=== PATIENT | female | born 1960 | race Caucasian/White ===

== ENCOUNTER 2023-03-29 16:06 | Inpatient (IN) | payer MEDICARE, OTHER, SELFPAY ==
[~2023-03-29 16:06] MED LIST: Iopamidol-370 76% 500 ML MDV (1 ML CHARGE) ONE
[2023-03-29 16:31] LABS: Actual Bicarbonate (HCO3v) 27.7 mEq/L (22-28); Analyzer IN Cardio ER; Base Excess 2.4 mEq/L (-2.0 to +3.0); Calcium, Ionized (venous) 1.04 mmol/L (1.16-1.32); Chloride (VBG) 101 mmol/L (98-106); Hematocrit-VBG 45 % (36.0-47.0); Hemoglobin (Hb) 15.2 g/dL (11.7-16.0); Sodium 140 mmol/L (133-146); pH (venous) 7.402 (7.32-7.43)
[2023-03-29 16:51] LABS: #Monocytes 0.5 thou/uL (0.11-0.59); #Neutrophils 3.7 thou/uL (1.40-6.50); %Basophils 0.5 % (0.0-1.0); %Eosinophils 0.5 % (0.0-10.0); %Lymphocytes 23.7 % (21.0-51.0); %Monocytes 8.3 % (0.0-10.0); %Neutrophils 66.6 % (42.0-75.0); Hematocrit 49.6 % (36.0-47.0); Hemoglobin 15.4 g/dL (12.0-16.0); Mean Corpuscular Hemoglobin 29.3 pg (27.0-31.0); Mean Corpuscular Volume 94.3 fl (78.0-98.0); Mean Platelet Volume 11.1 fL (7.4-10.4); Platelet Count 132 10x3/uL (130-400); Red Blood Cell (RBC) Count 5.26 mill/uL (4.20-5.40); White Blood Cell (WBC) Count 5.6 10x3/uL (4.8-10.8)
[2023-03-29 17:08] LABS: ALT (SGPT) 11 U/L (8-55); AST (SGOT) 24 U/L (5-34); Albumin 4.1 g/dL (3.4-4.8); Alkaline Phosphatase 88 U/L (40-110); Anion Gap 17 mmol/L (10-20); BUN (Urea Nitrogen) 10 mg/dL (9.8-20.1); Bilirubin, Total 1.8 mg/dL (0.2-1.2); Calc. Creatinine Clearance 0 mL/min (70-130); Carbon Dioxide 26 mmol/L (23-31); Chloride 101 mmol/L (98-107); Estimated GFR 62; Globulin 3.8 g/dL (2.4-3.5); Glucose 117 mg/dL (80-115); Magnesium 1.5 mg/dL (1.6-2.6); Potassium 3.9 mmol/L (3.5-5.1); Protein, Total 7.9 g/dL (5.8-8.1); Sodium 140 mmol/L (136-145)
[2023-03-29 17:09] LABS: Troponin I Less than 0.010 ng/mL (< 0.028)
[2023-03-29 17:23] LABS: SARS-CoV-2 NAA Rapid Test Not Detected (NotDetected)
[2023-03-29] MEDS ORDERED: Furosemide 20 MG/2 ML VIAL ONE (18:47)
[2023-03-29 19:46] LABS: Bacteria/HPF None Seen HPF (None Seen); Bilirubin Negative (Negative); Blood, Urine Negative (Negative); CAUTI Indications for Culture Dysuria,urgency,freq; Clarity Clear (Clear); Glucose, Urine (Dipstick) Normal (Negative); Ketone, Urine Negative (Negative); Leukocyte Negative Leu/uL (Negative); Nitrite Negative (Negative); Protein, Urine (Dipstick) Negative (Neg-Trace); RBC/HPF 0-3 HPF (0-3); Specific Gravity, Urine 1.013 (1.002-1.036); Squamous Epithelial 0-3 HPF (0-3); Urobilinogen Normal mg/dL (Less than 2); WBC/HPF 0-3 HPF (0-3)
[2023-03-29 19:49] LABS: Urine Culture Reflex No No
[2023-03-29] MEDS ORDERED: Ipratropium/Albuterol 3 ML NEB ONE (22:01)
[2023-03-29] MEDS ORDERED: Cefepime 2 GM VIAL ONE (22:05)
[2023-03-29] MEDS ORDERED: methylPREDNISolone Sod Succ/PF 125 MG/2 ML VIAL ONE (22:06)
[2023-03-29] MEDS ORDERED: Sodium Chloride 0.9% 100 ML ONE (22:07)
[2023-03-29] MEDS ORDERED: Magnesium Sulfate In Water 4 GM in Premix 1 BAG IVPB SCH (22:15)
[2023-03-29] MEDS ORDERED: Ondansetron PF 4 MG/2 ML Vial IVP PRN (23:04)
[2023-03-29] MEDS ORDERED: Calcium Carbonate 500 MG ChewTAB PO PRN (23:04)
[2023-03-29] MEDS ORDERED: Acetaminophen 325 MG TAB PO PRN ×2 (23:04→23:21)
[2023-03-29] MEDS ORDERED: Ondansetron ODT 4 MG TAB PO PRN (23:04)
[2023-03-29] MEDS ORDERED: Ipratropium/Albuterol 3 ML NEB NEB PRN (23:08)
[2023-03-30] MEDS: Ipratropium/Albuterol 3 ML NEB NEB SCH ×6 (04:44→22:39)
[2023-03-30] MEDS ORDERED: methylPREDNISolone Sod Succ 40 MG VIAL ONE ×2 (04:50→10:48)
[2023-03-30] MEDS: methylPREDNISolone Sod Succ 40 MG VIAL IVP SCH ×4 (04:53→22:29)
[2023-03-30] MEDS: Mometasone 200 MCG/Formoterol 5 MCG 120 PUFF INHALER INH SCH ×2 (06:59→19:10)
[2023-03-30 07:09] LABS: #Neutrophils 2.9 thou/uL (1.40-6.50); %Lymphocytes 15.2 % (21.0-51.0); %Monocytes 0.9 % (0.0-10.0); %Neutrophils 83.6 % (42.0-75.0); Hematocrit 45.4 % (36.0-47.0); Hemoglobin 14.3 g/dL (12.0-16.0); Mean Corpuscular HGB CONC 31.5 g/dL (32.0-36.0); Mean Corpuscular Hemoglobin 29.6 pg (27.0-31.0); Mean Platelet Volume 11.5 fL (7.4-10.4); Platelet Count 145 10x3/uL (130-400); RBC Distribution Width 14.6 % (11.5-14.5); Red Blood Cell (RBC) Count 4.83 mill/uL (4.20-5.40); White Blood Cell (WBC) Count 3.5 10x3/uL (4.8-10.8)
[2023-03-30 07:21] LABS: Magnesium 2.5 mg/dL (1.6-2.6)
[2023-03-30 07:26] LABS: Troponin I Less than 0.010 ng/mL (< 0.028)
[2023-03-30] MEDS ORDERED: Famotidine 20 MG TAB PO SCH (09:00)
[2023-03-30] MEDS ORDERED: Aspirin Chewable 81 MG TAB ONE (09:46)
[2023-03-30] MEDS ORDERED: Doxycycline 100 MG CAP ONE (09:46)
[2023-03-30] MEDS ORDERED: Cefepime 1 GM VIAL ONE (09:46)
[2023-03-30] MEDS ORDERED: Furosemide 20 MG/2 ML VIAL ONE (09:46)
[2023-03-30] MEDS ORDERED: Sodium Chloride 0.9% 100 ML ONE (09:47)
[2023-03-30] MEDS: Aspirin 81 mg Enteric Coated Tablet PO SCH (09:55)
[2023-03-30] MEDS: Doxycycline 100 MG CAP PO SCH ×2 (09:55→20:22)
[2023-03-30] MEDS: Cefepime 1 GM in Sodium Chloride 0.9% 100 ML IVPB SCH ×2 (10:03→20:21)
[2023-03-30] MEDS ORDERED: Empagliflozin 10 MG TAB PO SCH ×2 (11:00→14:15)
[2023-03-30] MEDS: Heparin 5,000 UNITS/ML VIAL SC SCH ×2 (11:00→20:21)
[2023-03-30] MEDS: guaiFENesin ER 600 MG TAB PO SCH ×2 (11:03→20:21)
[2023-03-30] MEDS: Furosemide 20 MG/2 ML VIAL SLOW IVP SCH (11:07)
[2023-03-30] MEDS: Senokot S 8.6-50 MG TAB PO SCH ×2 (11:29→20:22)
[2023-03-30] MEDS ORDERED: Potassium Chloride 20 MEQ TAB PO SCH ×2 (12:00→14:15)
[2023-03-30] MEDS: Spironolactone 25 MG TAB PO SCH (15:30)
[2023-03-30] MEDS: traMADol HCl 50 MG TAB PO PRN (15:30)
[2023-03-30] MEDS ORDERED: FLU VACC QS2023-24(6MOS UP)/PF 60 MCG/0.5 ML SYRINGE IM ONE (16:00)
[2023-03-30] MEDS ORDERED: Furosemide 20 MG/2 ML VIAL SLOW IVP SCH (16:00)
[2023-03-30] MEDS ORDERED: Lidocaine 4% Patch TD PRN (21:30)
[2023-03-30] MEDS ORDERED: Transdermal Patch Removal TOP PRN (21:34)
[2023-03-31] MEDS: Ipratropium/Albuterol 3 ML NEB NEB SCH ×6 (02:21→21:44)
[2023-03-31] MEDS: methylPREDNISolone Sod Succ 40 MG VIAL IVP SCH ×4 (03:25→22:57)
[2023-03-31 04:01] LABS: #Monocytes 0.2 thou/uL (0.11-0.59); #Neutrophils 5.9 thou/uL (1.40-6.50); %Lymphocytes 7.2 % (21.0-51.0); %Neutrophils 89.3 % (42.0-75.0); Hematocrit 41.5 % (36.0-47.0); Hemoglobin 13.1 g/dL (12.0-16.0); Mean Corpuscular HGB CONC 31.6 g/dL (32.0-36.0); Mean Corpuscular Hemoglobin 29.4 pg (27.0-31.0); Mean Platelet Volume 11.7 fL (7.4-10.4); Platelet Count 155 10x3/uL (130-400); RBC Distribution Width 14.8 % (11.5-14.5); Red Blood Cell (RBC) Count 4.46 mill/uL (4.20-5.40); White Blood Cell (WBC) Count 6.6 10x3/uL (4.8-10.8)
[2023-03-31 04:26] LABS: Anion Gap 13 mmol/L (10-20); BUN (Urea Nitrogen) 19 mg/dL (9.8-20.1); Calc. Creatinine Clearance 49 mL/min (70-130); Calcium 8.7 mg/dL (7.8-10.44); Carbon Dioxide 36 mmol/L (23-31); Chloride 93 mmol/L (98-107); Estimated GFR 52; Glucose 149 mg/dL (80-115); Potassium 3.4 mmol/L (3.5-5.1); Sodium 139 mmol/L (136-145)
[2023-03-31] MEDS: Mometasone 200 MCG/Formoterol 5 MCG 120 PUFF INHALER INH SCH ×2 (07:57→18:35)
[2023-03-31] MEDS: Senokot S 8.6-50 MG TAB PO SCH ×2 (08:02→19:58)
[2023-03-31] MEDS: Spironolactone 25 MG TAB PO SCH ×3 (09:34→17:29)
[2023-03-31] MEDS: Cefepime 1 GM in Sodium Chloride 0.9% 100 ML IVPB SCH (09:34)
[2023-03-31] MEDS: Aspirin 81 mg Enteric Coated Tablet PO SCH (09:34)
[2023-03-31] MEDS: Gabapentin 300 MG CAP PO SCH (09:35)
[2023-03-31] MEDS: Doxycycline 100 MG CAP PO SCH ×2 (09:35→19:58)
[2023-03-31] MEDS: guaiFENesin ER 600 MG TAB PO SCH ×2 (09:35→19:57)
[2023-03-31] MEDS: Furosemide 20 MG/2 ML VIAL SLOW IVP SCH (09:35)
[2023-03-31] MEDS: Heparin 5,000 UNITS/ML VIAL SC SCH ×2 (09:35→19:56)
[2023-03-31] MEDS: Sertraline 100 MG TAB PO SCH (09:36)
[2023-03-31] MEDS: traMADol HCl 50 MG TAB PO PRN (10:39)
[2023-03-31] MEDS ORDERED: Potassium Chloride 20 MEQ TAB PO SCH ×2 (12:00)
[2023-04-01] MEDS: Ipratropium/Albuterol 3 ML NEB NEB SCH ×7 (01:42→21:38)
[2023-04-01] MEDS: methylPREDNISolone Sod Succ 40 MG VIAL IVP SCH ×4 (04:44→22:00)
[2023-04-01 05:01] LABS: #Monocytes 0.3 thou/uL (0.11-0.59); %Basophils 0.1 % (0.0-1.0); %Lymphocytes 4.3 % (21.0-51.0); %Monocytes 3.2 % (0.0-10.0); %Neutrophils 91.8 % (42.0-75.0); Hematocrit 45.1 % (36.0-47.0); Hemoglobin 13.9 g/dL (12.0-16.0); Mean Corpuscular HGB CONC 30.8 g/dL (32.0-36.0); Mean Corpuscular Hemoglobin 29.4 pg (27.0-31.0); Mean Corpuscular Volume 95.3 fl (78.0-98.0); Mean Platelet Volume 11.8 fL (7.4-10.4); Platelet Count 171 10x3/uL (130-400); RBC Distribution Width 15.3 % (11.5-14.5); Red Blood Cell (RBC) Count 4.73 mill/uL (4.20-5.40); White Blood Cell (WBC) Count 9.8 10x3/uL (4.8-10.8)
[2023-04-01 05:27] LABS: Anion Gap 17 mmol/L (10-20); BUN (Urea Nitrogen) 27 mg/dL (9.8-20.1); Calc. Creatinine Clearance 44 mL/min (70-130); Calcium 9.1 mg/dL (7.8-10.44); Carbon Dioxide 34 mmol/L (23-31); Chloride 94 mmol/L (98-107); Estimated GFR 44; Glucose 134 mg/dL (80-115); Potassium 3.7 mmol/L (3.5-5.1); Sodium 141 mmol/L (136-145)
[2023-04-01] MEDS: Mometasone 200 MCG/Formoterol 5 MCG 120 PUFF INHALER INH SCH ×2 (07:30→18:41)
[2023-04-01] MEDS: Spironolactone 25 MG TAB PO SCH ×2 (10:16→17:08)
[2023-04-01] MEDS: Gabapentin 300 MG CAP PO SCH (10:16)
[2023-04-01] MEDS: Aspirin 81 mg Enteric Coated Tablet PO SCH (10:16)
[2023-04-01] MEDS: Doxycycline 100 MG CAP PO SCH ×2 (10:16→20:02)
[2023-04-01] MEDS: Heparin 5,000 UNITS/ML VIAL SC SCH ×2 (10:17→20:03)
[2023-04-01] MEDS: guaiFENesin ER 600 MG TAB PO SCH ×2 (10:17→20:03)
[2023-04-01] MEDS: Sertraline 100 MG TAB PO SCH (10:18)
[2023-04-01] MEDS: Senokot S 8.6-50 MG TAB PO SCH ×2 (10:18→19:58)
[2023-04-01] MEDS ORDERED: tiZANidine HCl 4 MG TAB PO PRN (19:30)
[2023-04-01] MEDS ORDERED: Albuterol 200 PUFF (6.7GM INHALER) INH PRN (19:30)
[2023-04-01] MEDS: hydrOXYzine 25 MG TAB PO PRN (20:02)
[2023-04-01] MEDS ORDERED: FLU VACC QS2023-24(6MOS UP)/PF 60 MCG/0.5 ML SYRINGE IM ONE (23:45)
[2023-04-02] MEDS: Ipratropium/Albuterol 3 ML NEB NEB SCH ×6 (01:36→22:14)
[2023-04-02] MEDS: methylPREDNISolone Sod Succ 40 MG VIAL IVP SCH ×4 (03:20→21:41)
[2023-04-02 04:45] LABS: Anion Gap 17 mmol/L (10-20); BUN (Urea Nitrogen) 28 mg/dL (9.8-20.1); Calc. Creatinine Clearance 62 mL/min (70-130); Calcium 8.7 mg/dL (7.8-10.44); Carbon Dioxide 30 mmol/L (23-31); Chloride 97 mmol/L (98-107); Estimated GFR 69; Glucose 146 mg/dL (80-115); Potassium 3.4 mmol/L (3.5-5.1); Sodium 141 mmol/L (136-145)
[2023-04-02] MEDS: Mometasone 200 MCG/Formoterol 5 MCG 120 PUFF INHALER INH SCH ×2 (07:03→18:32)
[2023-04-02] MEDS ORDERED: Furosemide 20 MG/2 ML VIAL SLOW IVP SCH (08:00)
[2023-04-02] MEDS ORDERED: Potassium Chloride 20 MEQ TAB PO SCH (08:00)
[2023-04-02] MEDS ORDERED: Non-Formulary Item 1 EACH (Fluticasone/Umeclidin/Vilanter [Trelegy Ellipta 100-62.5-25] 1 IH SCH (09:00)
[2023-04-02] MEDS: Gabapentin 300 MG CAP PO SCH (09:04)
[2023-04-02] MEDS: Doxycycline 100 MG CAP PO SCH ×2 (09:05→20:20)
[2023-04-02] MEDS: guaiFENesin ER 600 MG TAB PO SCH ×2 (09:05→20:20)
[2023-04-02] MEDS: Aspirin 81 mg Enteric Coated Tablet PO SCH (09:05)
[2023-04-02] MEDS: Sertraline 100 MG TAB PO SCH (09:05)
[2023-04-02] MEDS: Senokot S 8.6-50 MG TAB PO SCH ×2 (09:05→20:19)
[2023-04-02] MEDS: Spironolactone 25 MG TAB PO SCH ×2 (09:05→16:27)
[2023-04-02] MEDS: Heparin 5,000 UNITS/ML VIAL SC SCH ×2 (09:06→20:20)
[2023-04-02] MEDS: traMADol HCl 50 MG TAB PO PRN ×2 (09:24→21:51)
[2023-04-02] MEDS: Guaifenesin DM 100-10/5 ML UDCUP PO PRN (21:37)
[2023-04-02] MEDS: hydrOXYzine 25 MG TAB PO PRN (22:00)
[2023-04-03] MEDS: Ipratropium/Albuterol 3 ML NEB NEB SCH ×6 (02:15→22:22)
[2023-04-03] MEDS: methylPREDNISolone Sod Succ 40 MG VIAL IVP SCH ×3 (05:01→22:06)
[2023-04-03] MEDS: Mometasone 200 MCG/Formoterol 5 MCG 120 PUFF INHALER INH SCH ×2 (07:07→19:02)
[2023-04-03 09:19] LABS: Anion Gap 16 mmol/L (10-20); BUN (Urea Nitrogen) 28 mg/dL (9.8-20.1); Calc. Creatinine Clearance 66 mL/min (70-130); Calcium 8.8 mg/dL (7.8-10.44); Carbon Dioxide 34 mmol/L (23-31); Chloride 98 mmol/L (98-107); Estimated GFR 74; Glucose 121 mg/dL (80-115); Potassium 4.1 mmol/L (3.5-5.1); Sodium 144 mmol/L (136-145)
[2023-04-03] MEDS: Heparin 5,000 UNITS/ML VIAL SC SCH ×2 (09:24→22:05)
[2023-04-03] MEDS: Gabapentin 300 MG CAP PO SCH (09:26)
[2023-04-03] MEDS: Doxycycline 100 MG CAP PO SCH ×2 (09:26→22:05)
[2023-04-03] MEDS: Sertraline 100 MG TAB PO SCH (09:26)
[2023-04-03] MEDS: traMADol HCl 50 MG TAB PO PRN (09:26)
[2023-04-03] MEDS: Aspirin 81 mg Enteric Coated Tablet PO SCH (09:26)
[2023-04-03] MEDS: guaiFENesin ER 600 MG TAB PO SCH ×2 (09:27→22:05)
[2023-04-03] MEDS: Spironolactone 25 MG TAB PO SCH ×2 (09:27→17:33)
[2023-04-03] MEDS: Empagliflozin 10 MG TAB PO SCH (09:27)
[2023-04-03] MEDS: Senokot S 8.6-50 MG TAB PO SCH ×2 (09:37→22:06)
[2023-04-03] MEDS: Guaifenesin DM 100-10/5 ML UDCUP PO PRN (15:09)
[2023-04-03] MEDS: Montelukast Sodium 10 mg Tablet PO SCH (22:05)
[2023-04-04] MEDS: Guaifenesin DM 100-10/5 ML UDCUP PO PRN ×2 (01:25→05:36)
[2023-04-04] MEDS: Ipratropium/Albuterol 3 ML NEB NEB SCH ×6 (02:17→22:18)
[2023-04-04] MEDS: methylPREDNISolone Sod Succ 40 MG VIAL IVP SCH ×2 (05:36→13:59)
[2023-04-04] MEDS: Mometasone 200 MCG/Formoterol 5 MCG 120 PUFF INHALER INH SCH ×2 (07:49→18:24)
[2023-04-04] MEDS: Heparin 5,000 UNITS/ML VIAL SC SCH ×2 (08:55→21:08)
[2023-04-04] MEDS: Gabapentin 300 MG CAP PO SCH (08:58)
[2023-04-04] MEDS: traMADol HCl 50 MG TAB PO PRN (08:59)
[2023-04-04] MEDS: Senokot S 8.6-50 MG TAB PO SCH ×2 (08:59→21:08)
[2023-04-04] MEDS: Empagliflozin 10 MG TAB PO SCH (08:59)
[2023-04-04] MEDS: guaiFENesin ER 600 MG TAB PO SCH ×2 (08:59→21:08)
[2023-04-04] MEDS: Spironolactone 25 MG TAB PO SCH ×2 (08:59→16:50)
[2023-04-04] MEDS: Doxycycline 100 MG CAP PO SCH ×2 (09:03→21:08)
[2023-04-04] MEDS: Aspirin 81 mg Enteric Coated Tablet PO SCH (09:03)
[2023-04-04] MEDS: Sertraline 100 MG TAB PO SCH (09:03)
[2023-04-04] MEDS ORDERED: Fluconazole 100 MG TAB PO SCH (19:00)
[2023-04-04] MEDS: Montelukast Sodium 10 mg Tablet PO SCH (21:08)
[2023-04-05] MEDS: Ipratropium/Albuterol 3 ML NEB NEB SCH ×6 (02:27→22:24)
[2023-04-05] MEDS: Mometasone 200 MCG/Formoterol 5 MCG 120 PUFF INHALER INH SCH ×2 (07:30→18:31)
[2023-04-05 08:06] LABS: #Eosinphils 0.1 thou/uL (0.0-0.7); #Monocytes 1.2 thou/uL (0.11-0.59); #Neutrophils 8.9 thou/uL (1.40-6.50); %Basophils 0.2 % (0.0-1.0); %Eosinophils 0.6 % (0.0-10.0); %Lymphocytes 17.8 % (21.0-51.0); %Monocytes 9.3 % (0.0-10.0); %Neutrophils 70.9 % (42.0-75.0); Hematocrit 51.7 % (36.0-47.0); Hemoglobin 15.5 g/dL (12.0-16.0); Mean Corpuscular Hemoglobin 29.1 pg (27.0-31.0); Mean Platelet Volume 11.7 fL (7.4-10.4); Platelet Count 143 10x3/uL (130-400); RBC Distribution Width 14.6 % (11.5-14.5); Red Blood Cell (RBC) Count 5.33 mill/uL (4.20-5.40); White Blood Cell (WBC) Count 12.5 10x3/uL (4.8-10.8)
[2023-04-05 08:45] LABS: ALT (SGPT) 79 U/L (8-55); AST (SGOT) 59 U/L (5-34); Albumin 4.2 g/dL (3.4-4.8); Alkaline Phosphatase 110 U/L (40-110); Anion Gap 15 mmol/L (10-20); BUN (Urea Nitrogen) 30 mg/dL (9.8-20.1); Bilirubin, Total 1.6 mg/dL (0.2-1.2); Calc. Creatinine Clearance 67 mL/min (70-130); Calcium 9.8 mg/dL (7.8-10.44); Carbon Dioxide 31 mmol/L (23-31); Chloride 99 mmol/L (98-107); Estimated GFR 74; Globulin 3.6 g/dL (2.4-3.5); Glucose 87 mg/dL (80-115); Potassium 4.7 mmol/L (3.5-5.1); Protein, Total 7.8 g/dL (5.8-8.1); Sodium 140 mmol/L (136-145)
[2023-04-05] MEDS ORDERED: Benzocaine/Menthol 1 LOZ LOZ PO PRN (08:53)
[2023-04-05] MEDS: Spironolactone 25 MG TAB PO SCH ×2 (09:38→17:48)
[2023-04-05] MEDS: predniSONE 20 MG TAB PO SCH (09:38)
[2023-04-05] MEDS: Empagliflozin 10 MG TAB PO SCH (09:38)
[2023-04-05] MEDS: Doxycycline 100 MG CAP PO SCH ×2 (09:38→20:18)
[2023-04-05] MEDS: Aspirin 81 mg Enteric Coated Tablet PO SCH (09:38)
[2023-04-05] MEDS: Heparin 5,000 UNITS/ML VIAL SC SCH ×2 (09:39→20:17)
[2023-04-05] MEDS: guaiFENesin ER 600 MG TAB PO SCH ×2 (09:39→20:18)
[2023-04-05] MEDS: Fluconazole 100 MG TAB PO SCH (09:39)
[2023-04-05] MEDS: Sertraline 100 MG TAB PO SCH (09:40)
[2023-04-05] MEDS: Senokot S 8.6-50 MG TAB PO SCH ×2 (09:40→20:18)
[2023-04-05] MEDS: Gabapentin 300 MG CAP PO SCH (09:41)
[2023-04-05] MEDS: traMADol HCl 50 MG TAB PO PRN (09:48)
[2023-04-05] MEDS: Sucralfate 1 GM TAB PO SCH ×3 (14:17→22:27)
[2023-04-05] MEDS: Montelukast Sodium 10 mg Tablet PO SCH (20:18)
[2023-04-06] MEDS: Ipratropium/Albuterol 3 ML NEB NEB SCH ×6 (02:37→21:30)
[2023-04-06 04:45] LABS: #Monocytes 1.1 thou/uL (0.11-0.59); %Basophils 0.2 % (0.0-1.0); %Eosinophils 0.2 % (0.0-10.0); %Lymphocytes 11.5 % (21.0-51.0); %Monocytes 9.1 % (0.0-10.0); %Neutrophils 77.4 % (42.0-75.0); Hematocrit 46.2 % (36.0-47.0); Hemoglobin 14.3 g/dL (12.0-16.0); Mean Corpuscular Hemoglobin 29.6 pg (27.0-31.0); Mean Corpuscular Volume 95.7 fl (78.0-98.0); Mean Platelet Volume 12.4 fL (7.4-10.4); Platelet Count 144 10x3/uL (130-400); RBC Distribution Width 14.6 % (11.5-14.5); Red Blood Cell (RBC) Count 4.83 mill/uL (4.20-5.40); White Blood Cell (WBC) Count 11.6 10x3/uL (4.8-10.8)
[2023-04-06 05:16] LABS: ALT (SGPT) 59 U/L (8-55); AST (SGOT) 29 U/L (5-34); Albumin 3.8 g/dL (3.4-4.8); Alkaline Phosphatase 125 U/L (40-110); Anion Gap 12 mmol/L (10-20); BUN (Urea Nitrogen) 29 mg/dL (9.8-20.1); Bilirubin, Total 1.3 mg/dL (0.2-1.2); Calc. Creatinine Clearance 48 mL/min (70-130); Calcium 8.9 mg/dL (7.8-10.44); Carbon Dioxide 33 mmol/L (23-31); Chloride 100 mmol/L (98-107); Estimated GFR 49; Glucose 107 mg/dL (80-115); Potassium 4.4 mmol/L (3.5-5.1); Protein, Total 6.8 g/dL (5.8-8.1); Sodium 141 mmol/L (136-145)
[2023-04-06] MEDS: Mometasone 200 MCG/Formoterol 5 MCG 120 PUFF INHALER INH SCH ×2 (07:33→17:53)
[2023-04-06] MEDS: Aspirin 81 mg Enteric Coated Tablet PO SCH (07:44)
[2023-04-06] MEDS: predniSONE 20 MG TAB PO SCH (07:44)
[2023-04-06] MEDS: Gabapentin 300 MG CAP PO SCH (07:44)
[2023-04-06] MEDS: Fluconazole 100 MG TAB PO SCH (07:44)
[2023-04-06] MEDS: Empagliflozin 10 MG TAB PO SCH (07:44)
[2023-04-06] MEDS: Doxycycline 100 MG CAP PO SCH ×2 (07:44→20:18)
[2023-04-06] MEDS: Sucralfate 1 GM TAB PO SCH ×4 (07:44→22:27)
[2023-04-06] MEDS: Sertraline 100 MG TAB PO SCH (07:45)
[2023-04-06] MEDS: guaiFENesin ER 600 MG TAB PO SCH ×2 (07:45→20:18)
[2023-04-06] MEDS: Senokot S 8.6-50 MG TAB PO SCH ×2 (07:45→20:18)
[2023-04-06] MEDS: Heparin 5,000 UNITS/ML VIAL SC SCH ×2 (07:45→20:18)
[2023-04-06] MEDS: Spironolactone 25 MG TAB PO SCH (11:37)
[2023-04-06] MEDS: Montelukast Sodium 10 mg Tablet PO SCH (20:17)
[2023-04-07] MEDS: Ipratropium/Albuterol 3 ML NEB NEB SCH ×6 (01:24→21:43)
[2023-04-07 05:41] LABS: #Basophils 0.1 thou/uL (0.0-0.2); #Neutrophils 8.1 thou/uL (1.40-6.50); %Basophils 0.5 % (0.0-1.0); %Eosinophils 0.1 % (0.0-10.0); %Lymphocytes 14.6 % (21.0-51.0); %Monocytes 9.2 % (0.0-10.0); %Neutrophils 73.7 % (42.0-75.0); Hematocrit 44.9 % (36.0-47.0); Hemoglobin 14.2 g/dL (12.0-16.0); Mean Corpuscular HGB CONC 31.6 g/dL (32.0-36.0); Mean Corpuscular Hemoglobin 29.6 pg (27.0-31.0); Mean Corpuscular Volume 93.5 fl (78.0-98.0); Mean Platelet Volume 12.8 fL (7.4-10.4); Platelet Count 122 10x3/uL (130-400); RBC Distribution Width 14.7 % (11.5-14.5); White Blood Cell (WBC) Count 10.9 10x3/uL (4.8-10.8)
[2023-04-07 06:05] LABS: Anion Gap 18 mmol/L (10-20); BUN (Urea Nitrogen) 27 mg/dL (9.8-20.1); Calc. Creatinine Clearance 62 mL/min (70-130); Calcium 8.3 mg/dL (7.8-10.44); Carbon Dioxide 24 mmol/L (23-31); Chloride 102 mmol/L (98-107); Estimated GFR 68; Glucose 106 mg/dL (80-115); Potassium 4.5 mmol/L (3.5-5.1); Sodium 139 mmol/L (136-145)
[2023-04-07 06:10] LABS: ALT (SGPT) 49 U/L (8-55); AST (SGOT) 25 U/L (5-34); Albumin 3.3 g/dL (3.4-4.8); Alkaline Phosphatase 93 U/L (40-110); Bilirubin, Direct 0.7 mg/dL (0.1-0.3); Bilirubin, Total 1.2 mg/dL (0.2-1.2); Protein, Total 6.2 g/dL (5.8-8.1)
[2023-04-07] MEDS: Mometasone 200 MCG/Formoterol 5 MCG 120 PUFF INHALER INH SCH ×2 (06:46→17:48)
[2023-04-07] MEDS: predniSONE 20 MG TAB PO SCH (12:06)
[2023-04-07] MEDS: Heparin 5,000 UNITS/ML VIAL SC SCH ×2 (12:07→19:44)
[2023-04-07] MEDS: Doxycycline 100 MG CAP PO SCH ×2 (12:13→19:46)
[2023-04-07] MEDS: Aspirin 81 mg Enteric Coated Tablet PO SCH (12:13)
[2023-04-07] MEDS: Sucralfate 1 GM TAB PO SCH ×4 (12:13→19:45)
[2023-04-07] MEDS: guaiFENesin ER 600 MG TAB PO SCH ×2 (12:14→19:46)
[2023-04-07] MEDS: ESTROGENS CONJUGATED 1.25 MG PO SCH (12:14)
[2023-04-07] MEDS: Fluconazole 100 MG TAB PO SCH (12:14)
[2023-04-07] MEDS: Gabapentin 300 MG CAP PO SCH (12:14)
[2023-04-07] MEDS: Senokot S 8.6-50 MG TAB PO SCH ×2 (12:15→19:45)
[2023-04-07] MEDS: Sertraline 100 MG TAB PO SCH (12:15)
[2023-04-07] MEDS: Montelukast Sodium 10 mg Tablet PO SCH (19:46)
[2023-04-07] MEDS: hydrOXYzine 25 MG TAB PO PRN (19:46)
[2023-04-08] MEDS: Ipratropium/Albuterol 3 ML NEB NEB SCH ×6 (01:42→22:50)
[2023-04-08 05:59] LABS: Anion Gap 14 mmol/L (10-20); BUN (Urea Nitrogen) 28 mg/dL (9.8-20.1); Calc. Creatinine Clearance 68 mL/min (70-130); Calcium 8.5 mg/dL (7.8-10.44); Carbon Dioxide 28 mmol/L (23-31); Chloride 104 mmol/L (98-107); Estimated GFR 73; Glucose 79 mg/dL (80-115); Potassium 4.2 mmol/L (3.5-5.1); Sodium 142 mmol/L (136-145)
[2023-04-08] MEDS: Mometasone 200 MCG/Formoterol 5 MCG 120 PUFF INHALER INH SCH ×2 (07:11→18:37)
[2023-04-08] MEDS: Sucralfate 1 GM TAB PO SCH ×4 (08:19→19:58)
[2023-04-08] MEDS: predniSONE 20 MG TAB PO SCH (08:19)
[2023-04-08] MEDS: Doxycycline 100 MG CAP PO SCH ×2 (08:20→19:57)
[2023-04-08] MEDS: Sertraline 100 MG TAB PO SCH (08:20)
[2023-04-08] MEDS: Aspirin 81 mg Enteric Coated Tablet PO SCH (08:20)
[2023-04-08] MEDS: guaiFENesin ER 600 MG TAB PO SCH ×2 (08:20→19:58)
[2023-04-08] MEDS: Fluconazole 100 MG TAB PO SCH (08:20)
[2023-04-08] MEDS: Gabapentin 300 MG CAP PO SCH (08:20)
[2023-04-08] MEDS: Senokot S 8.6-50 MG TAB PO SCH ×2 (08:20→19:57)
[2023-04-08] MEDS: ESTROGENS CONJUGATED 1.25 MG PO SCH (08:21)
[2023-04-08] MEDS: Heparin 5,000 UNITS/ML VIAL SC SCH ×2 (09:04→19:58)
[2023-04-08] MEDS: Spironolactone 25 MG TAB PO SCH (17:12)
[2023-04-08] MEDS: Montelukast Sodium 10 mg Tablet PO SCH (19:57)
[2023-04-08] MEDS: hydrOXYzine 25 MG TAB PO PRN (19:57)
[2023-04-08] MEDS: traMADol HCl 50 MG TAB PO PRN (20:05)
[2023-04-09] MEDS: Ipratropium/Albuterol 3 ML NEB NEB SCH ×4 (03:38→13:02)
[2023-04-09] MEDS: Mometasone 200 MCG/Formoterol 5 MCG 120 PUFF INHALER INH SCH (07:45)
[2023-04-09] MEDS: Sucralfate 1 GM TAB PO SCH ×3 (12:19→16:38)
[2023-04-09] MEDS: ESTROGENS CONJUGATED 1.25 MG PO SCH (12:20)
[2023-04-09] MEDS: Aspirin 81 mg Enteric Coated Tablet PO SCH (12:21)
[2023-04-09] MEDS: Empagliflozin 10 MG TAB PO SCH (12:21)
[2023-04-09] MEDS: predniSONE 20 MG TAB PO SCH (12:21)
[2023-04-09] MEDS: Senokot S 8.6-50 MG TAB PO SCH (12:22)
[2023-04-09] MEDS: Gabapentin 300 MG CAP PO SCH (12:22)
[2023-04-09] MEDS: Sertraline 100 MG TAB PO SCH (12:22)
[2023-04-09] MEDS: Fluconazole 100 MG TAB PO SCH (12:22)
[2023-04-09] MEDS: guaiFENesin ER 600 MG TAB PO SCH (12:22)
[2023-04-09] MEDS: Doxycycline 100 MG CAP PO SCH (12:22)
[2023-04-09] MEDS: Spironolactone 25 MG TAB PO SCH ×2 (12:22→16:38)
[2023-04-09] MEDS: Heparin 5,000 UNITS/ML VIAL SC SCH (12:23)
[2023-04-10] MEDS ORDERED: Fluconazole 100 MG TAB PO SCH (09:00)
== END 2023-04-09 17:28 | disposition home or self-care (01) | DRG 314 ==
LOC: EDUNIT# 16:06 → ERS 16:06 → ERHOLD 22:57 → 2SW 23:01
PROVIDERS: ADMIT Internal Medicine; ATTEND Internal Medicine
PROC: 4A043R1 Measurement of Venous Saturation, Peripheral, Percutaneous Approach (ICD-10-PCS; principal; 2023-03-29)
DX: I27.81 Cor pulmonale (chronic) (principal); I50.33 Acute on chronic diastolic (congestive) heart failure; J96.21 Acute and chronic respiratory failure with hypoxia; J44.1 Chronic obstructive pulmonary disease with (acute) exacerbation; N17.9 Acute kidney failure, unspecified; I13.0 Hypertensive heart and chronic kidney disease with heart failure and stage 1 through stage 4 chronic kidney disease, or unspecified chronic kidney disease; R91.8 Other nonspecific abnormal finding of lung field; G89.4 Chronic pain syndrome; K21.9 Gastro-esophageal reflux disease without esophagitis; F41.9 Anxiety disorder, unspecified; N18.2 Chronic kidney disease, stage 2 (mild); M06.9 Rheumatoid arthritis, unspecified; R79.89 Other specified abnormal findings of blood chemistry; F32.A Depression, unspecified; E83.42 Hypomagnesemia; R74.01 Elevation of levels of liver transaminase levels; I27.20 Pulmonary hypertension, unspecified; E88.09 Other disorders of plasma-protein metabolism, not elsewhere classified; Z79.899 Other long term (current) drug therapy; Z90.710 Acquired absence of both cervix and uterus; Z98.890 Other specified postprocedural states; Z87.891 Personal history of nicotine dependence; Z11.52 Encounter for screening for COVID-19
CPT/HCPCS: 36415; 71045; 71275; 74230; 76770; 80048; 80053; 80076; 81001; 82805; 83605; 83735; 83880; 84443; 84484; 85025; 85379; 86140; 87040; 87070; 87205; 90471; 90686; 93005; 93306; 94640; 96365; 96367; 96375; 97139; G0008; J0692; J1644; J1940; J2920; J2930; J3475; J3490; J7512; J7620; Q9967

== ENCOUNTER 2023-04-26 13:19 | Outpatient (CLI) | payer MEDICARE | END 2023-04-26 13:20 | disposition home or self-care (01) | LOC: RAD 13:19 | PROVIDERS: ATTEND Internal Medicine Critical Care Medicine | DX: R06.00 Dyspnea, unspecified (principal); I51.7 Cardiomegaly; J44.9 Chronic obstructive pulmonary disease, unspecified | CPT/HCPCS: 71046 ==